=== PATIENT | female | born 1950 | race Caucasian/White ===

== ENCOUNTER → 2016-09-20 | Outpatient (CLI) | payer MEDICARE, OTHER ==
--- NOTE | 2016-09-21 07:56 | XCELERA REPORT ---
[address] [address] Lower Extremity Arterial Evaluation Name: JUDAH GONSALVES Age: 66 yrs Gender: Female : 1950 Patient Status: Outpatient Patient Location: Study Date: 09/20/2016 03:17 PM Procedure: A color flow and duplex scan of the lower extremity arteries was performed bilaterally with velocity and waveform anaylsis. Reason For Study: PAD, ULCER Ordering Physician: JASEN YBARRA Performed By: Cain Ortiz Measurements and Calculations Right Left BENCH HAND MACHINE PSV 102.1 68.1 cm/sec Prox PFA PSV -62.3 79.9 cm/sec Dist SFA PSV -72.8 -83.0 cm/sec Dist Pop A PSV 72.2 52.4 cm/sec Dist MORALES PSV 106.8 82.9 cm/sec Dist LOAD MIXER PSV 74.4 57.6 cm/sec Fausto Pedis PSV 76.6 -70.3 cm/sec Right Side Arterial Evaluation Normal velocity and triphasic waveforms noted from the Common Femoral artery to the infrageniculate vessels. 0 % stenosis noted. Ankle Brachial index is 1.27. Left Side Arterial Evaluation Normal velocity and triphasic waveforms noted from the Common Femoral artery to the infrageniculate vessels. 0 % stenosis noted. Ankle Brachial index is 1.08. Interpretation Summary No hemodynamically significant lesions in the bilateral lower extremities, on duplex imaging, at rest. : JASEN YBARRA > Damián Ivey
== END ==
LOC: SP 14:51
PROVIDERS: ATTEND Preventive Medicine Undersea and Hyperbaric Medicine
DX: I70.25 Atherosclerosis of native arteries of other extremities with ulceration (principal)
CPT/HCPCS: 93925